=== PATIENT | female | born 1935 | race Two or more races ===

== ENCOUNTER 2018-05-23 11:57 | Inpatient (IN) | payer MEDICARE, MEDICAID ==
[~2018-05-23] VITALS: Ht 152.4 cm; Wt 83.6 kg
[~2018-05-23 11:57] MED LIST: METF500T17 PO; NAPR-856 PO
--- NOTE | 2018-05-23 12:07 | NUR ---
LACHELLE. REPORT RECEIVED FROM EMS. PT C/O SOB WITH NON-PRODUCTIVE COUGH SINCE YESTERDAY MORNING AND GETTING WORSE. LUNG SOUNDS CLEAR. PT DENIES CP. NSR WITHOUT ECTOPY ON NUTRITION SPECIALIST FEATURES REPORTER. ALBUTEROL GIVEN BY EMS FEATURES REPORTER. PT HAS HX OF DM, ASTHMA, HTN. PT DOESN'T WEAR OXYGEN AT HOME. EKG TAKEN AT BEDSIDE BY EDT. XRAY TAKEN AT BEDSIDE WELL. ALL MONITORS IN PLACE. CALL LIGHT WITHIN REACH. PT IS INDONESIAN SPEAKING PRIMARILY, [employer] BUSINESS PLANNING ANALYST [id number] USED FOR PT ASSESSMENT AND EDUCATION.
[2018-05-23] MEDS: PLEASE ENTER HEIGHT AND WEIGHT MC SCH ×2 (12:30→19:24)
[2018-05-23] MEDS ORDERED: ALBUTEROL/IPRATROPIUM 2.5MG/0.5MG, 3 ML NPPB ONE (12:30)
[2018-05-23] MEDS ORDERED: ALBUTEROL SULFATE (12:37)
[2018-05-23 12:41] LABS: BASOPHILS # (AUTO) 0.03 x10^3/uL (0-0.1); BASOPHILS % (AUTO) 1 % (0-1); EOSINOPHILS # (AUTO) 0.22 x10^3/uL (0-0.4); EOSINOPHILS % (AUTO) 3 % (1-7); LYMPHOCYTES # (AUTO) 1.24 x10^3/uL (1-3.4); LYMPHOCYTES % (AUTO) 18 % (22-44); MD NO; MEAN CORPUSCULAR HGB CONC 31.9 g/dL (32.4-35.8); MEAN CORPUSCULAR VOLUME 78.3 fL (80-100); MEAN PLATELET VOLUME 8.6 fL (7.4-10.4); MONOCYTES # (AUTO) 0.34 x10^3/uL (0.2-0.8); MONOCYTES % (AUTO) 5 % (2-9); NEUTROPHILS # (AUTO) 5.05 x10^3/uL (1.8-6.8); NEUTROPHILS % (AUTO) 73 % (42-75); PLATELET COUNT 254 x10^3/uL (130-400); RED BLOOD COUNT 3.68 x10^6/uL (3.82-5.3); RED CELL DISTRIBUTION WIDTH 17.7 % (9.6-15.2)
[2018-05-23] MEDS ORDERED: ALBUTEROL/IPRATROPIUM 2.5MG/0.5MG, 3 ML ONE (12:46)
--- NOTE | 2018-05-23 12:48 | NUR ---
PT MEDICATED PER EMAR. PT TOLERATED WELL. ALL MONITORS IN PLACE. CALL LIGHT WITHIN REACH.
[2018-05-23 12:49] LABS: ALBUMIN 3.2 g/dL (3.4-5.0); ANION GAP 5 mmol/L (5-15); CALCIUM 8.6 mg/dL (8.5-10.1); CHLORIDE 106 mmol/L (98-107); CREATININE 1.12 mg/dL (0.55-1.02)
--- NOTE | 2018-05-23 12:59 | NUR ---
PT AMB TO BR AND BACK TO ROOM WITH STEADY GAIT. RT AT BEDSIDE AND MEDICATED AT THIS TIME.
--- NOTE | 2018-05-23 13:20 | NUR ---
KARTIK ECHEVARRIA AT BEDSIDE FOR REASSESSMENT
--- NOTE | 2018-05-23 13:38 | NUR ---
REPORT TO BREAK RAYMUNDO LEI
--- NOTE | 2018-05-23 14:31 | NUR ---
PT RESTING IN [facility]. ALL MONITORS IN PLACE. CALL LIGHT WITHIN REACH. PT DENIES ANY NEEDS AND CONCERNS AT THIS TIME. AWAITING ADMIT.
[2018-05-23] MEDS ORDERED: SENNA/DOCUSATE TABLET PO PRN (15:30)
[2018-05-23] MEDS ORDERED: ENALAPRILAT 1.25 MG/ML, 2ML IVPush PRN (15:30)
[2018-05-23] MEDS ORDERED: TRAZODONE 50MG TABLET PO PRN (15:30)
[2018-05-23] MEDS ORDERED: ONDANSETRON 2MG/ML, 2ML IVPush PRN (15:30)
[2018-05-23] MEDS ORDERED: ONDANSETRON ODT 4 MG PO PRN (15:30)
[2018-05-23] MEDS ORDERED: HYDROcodone/APAP 5/325 TABLET PO PRN (15:30)
--- NOTE | 2018-05-23 15:46 | NUR ---
PT RESTING ON GURNEY, RESPS EVEN AND UNLABORED. PT DENIES PAIN. NSR ON BOX CHIPPER, NO ECTOPY NOTED. PT HAS NO COMPLAINT AT THIS TIME. AWAITING MED SURG BED ASSIGNMENT AND TRANSPORT AT THIS TIME.
[2018-05-23] MEDS ORDERED: FUROSEMIDE 20 MG/2 ML IV ONE (16:30)
--- NOTE | 2018-05-23 16:57 | NUR ---
PHARMACY PAGED TO VERIFY HOME MEDS
[2018-05-23] MEDS ORDERED: FUROSEMIDE 20 MG/2 ML ONE (17:09)
--- NOTE | 2018-05-23 17:20 | NUR ---
PT MEDICATED PER EMAR. PT TOLERATED WELL. PT AOX4. RESPS EVEN AND UNLABORED. PT'S FAMILY AT BEDSIDE. ALL MONITORS IN PLACE. CALL LIGHT WITHIN REACH.
--- NOTE | 2018-05-23 17:30 | NUR ---
preceptor note: admit RN at bedside
[2018-05-23] MEDS ORDERED: HEPARIN 5,000 UNITS/ML, 1ML ONE (17:37)
--- NOTE | 2018-05-23 17:50 | NUR ---
SBAR REPORT GIVEN TO RAHUL FONSECA. ALL QUESTIONS ANSWERED.
[2018-05-23] MEDS ORDERED: METO100T7 PO (17:52)
[2018-05-23] MEDS ORDERED: ATOR20TA86 PO (17:52)
[2018-05-23] MEDS ORDERED: HYDR1TAB16 PO (17:52)
[2018-05-23] MEDS: HEPARIN 5,000 UNITS/ML, 1ML SQ SCH (18:00)
--- NOTE | 2018-05-23 18:07 | NUR ---
PT MEDICATED PER EMAR BY RAYMUNDO GERARD. PT RESTING ON GURNEY, RESPS EVEN AND UNLABORED. PT DENIES ANY PAIN. VSS, PT IS SINUS TACH RATE 99 WITH NO ECTOPY ON ENGINE ROOM OPERATOR. PT UP TO BATHROOM TO VOID X 4 SINCE LASIX ADMIN, GAIT STEADY. FAMILY AT BEDSIDE. PT AWAITING TRANSPORT TO ROOM 365 AT THIS TIME.
--- NOTE | 2018-05-23 18:15 | NUR ---
receiving RN Quyen called to notify that admit RN obtained additional home meds (from pt and family recollection) and has updated med rec. This has not since been reviewed by pt's MD. pt transported to room 365 accompanied by family without incident. pt a&o, resps even and unlabored, nadn at transport.
[2018-05-23 18:53] VITALS: BP 124/45
[2018-05-23] MEDS ORDERED: GLUCAGON 1 MG IM PRN (19:00)
[2018-05-23] MEDS ORDERED: DEXTROSE 4 GM TAB.CHEW PO PRN (19:00)
[2018-05-23] MEDS ORDERED: DEXTROSE 50%, 50ML SYRINGE IVPush PRN (19:00)
[2018-05-23 19:44] LABS: % IRON SATURATION 7 % (20-55); IRON LEVEL 27 mcg/dL (50-170); TOTAL IRON BINDING CAPACITY 391 mcg/dL (250-450)
[2018-05-23 19:48] LABS: TROPONIN I < 0.015 ng/mL (0.000-0.045)
[2018-05-23] MEDS: metFORMIN 500 MG TABLET PO SCH (20:21)
[2018-05-23] MEDS: ACETAMINOPHEN 325 MG TABLET PO PRN (20:22)
[2018-05-23] MEDS: METOPROLOL TARTRATE 50 MG TABLET PO SCH (20:22)
[2018-05-23] MEDS: ATORVASTATIN 20 MG TABLET PO SCH (20:22)
[2018-05-23] MEDS: SODIUM CHLORIDE FLUSH 10ML SYR IVF SCH (20:23)
[2018-05-23 20:24] LABS: HEMOGLOBIN A1C 5.8 % (4.2-6.3)
[2018-05-23] MEDS: BUDESONIDE 0.5 MG/2 ML INHA INH SCH (21:00)
[2018-05-23 21:30] LABS: RAPID INFLUENZA A Negative (Negative); RAPID INFLUENZA B Negative (Negative)
[2018-05-23] MEDS: ALBUTEROL SULFATE 2.5 MG/3 ML NPPB SCH (21:30)
[2018-05-24] MEDS: INSULIN LISPRO 100 UNITS/ML, PEN SQ-INSULIN SCH ×5 (00:53→21:37)
[2018-05-24 00:55] VITALS: BP 138/78
[2018-05-24 01:07] LABS: TROPONIN I < 0.015 ng/mL (0.000-0.045)
[2018-05-24] MEDS: HEPARIN 5,000 UNITS/ML, 1ML SQ SCH ×3 (03:29→21:38)
[2018-05-24] MEDS: ALBUTEROL SULFATE 2.5 MG/3 ML NPPB SCH ×2 (04:10→06:58)
[2018-05-24 05:33] LABS: ANION GAP 8 mmol/L (5-15); CALCIUM 8.4 mg/dL (8.5-10.1); CHLORIDE 106 mmol/L (98-107)
[2018-05-24 05:34] LABS: CREATININE 1.29 mg/dL (0.55-1.02)
[2018-05-24 06:31] VITALS: BP 132/66
[2018-05-24] MEDS: BUDESONIDE 0.5 MG/2 ML INHA INH SCH ×2 (06:58→19:02)
[2018-05-24] MEDS: metFORMIN 500 MG TABLET PO SCH ×2 (08:54→17:50)
[2018-05-24] MEDS: METOPROLOL TARTRATE 50 MG TABLET PO SCH ×2 (08:54→17:50)
[2018-05-24] MEDS: SODIUM CHLORIDE FLUSH 10ML SYR IVF SCH ×2 (08:54→21:39)
[2018-05-24 12:03] VITALS: BP 129/66
[2018-05-24] MEDS ORDERED: SENNA/DOCUSATE TABLET PO PRN (13:30)
[2018-05-24] MEDS ORDERED: ALBUTEROL SULFATE 2.5 MG/3 ML NPPB PRN (13:30)
[2018-05-24] MEDS: ALBUTEROL/IPRATROPIUM 2.5MG/0.5MG, 3 ML NPPB SCH ×2 (14:51→19:02)
[2018-05-24] MEDS ORDERED: ALBUTEROL/IPRATROPIUM 2.5MG/0.5MG, 3 ML NPPB SCH (15:00)
[2018-05-24] MEDS: FERROUS SULFATE 325 MG TABLET PO SCH ×2 (16:51→16:52)
[2018-05-24] MEDS: ACETAMINOPHEN 325 MG TABLET PO PRN ×2 (16:51→21:38)
[2018-05-24 19:56] VITALS: BP 154/63
[2018-05-24] MEDS: ATORVASTATIN 20 MG TABLET PO SCH (21:38)
[2018-05-25 01:04] VITALS: BP 144/69
[2018-05-25 05:49] LABS: CHLORIDE 107 mmol/L (98-107)
[2018-05-25] MEDS: HEPARIN 5,000 UNITS/ML, 1ML SQ SCH ×3 (05:52→20:40)
[2018-05-25 05:57] LABS: ANION GAP 7 mmol/L (5-15); CALCIUM 8.3 mg/dL (8.5-10.1)
[2018-05-25] MEDS: INSULIN LISPRO 100 UNITS/ML, PEN SQ-INSULIN SCH ×4 (07:06→20:39)
[2018-05-25 07:11] VITALS: BP 144/63
[2018-05-25] MEDS: BUDESONIDE 0.5 MG/2 ML INHA INH SCH ×2 (08:15→18:17)
[2018-05-25] MEDS: ALBUTEROL/IPRATROPIUM 2.5MG/0.5MG, 3 ML NPPB SCH ×4 (08:15→18:17)
[2018-05-25] MEDS: metFORMIN 500 MG TABLET PO SCH ×2 (08:47→16:16)
[2018-05-25] MEDS: FERROUS SULFATE 325 MG TABLET PO SCH ×2 (08:47→16:16)
[2018-05-25] MEDS: METOPROLOL TARTRATE 50 MG TABLET PO SCH ×2 (08:47→16:17)
[2018-05-25] MEDS: SODIUM CHLORIDE FLUSH 10ML SYR IVF SCH ×2 (08:48→20:36)
[2018-05-25 13:40] VITALS: BP 158/71
[2018-05-25] MEDS: ACETAMINOPHEN 325 MG TABLET PO PRN ×2 (16:16→20:35)
[2018-05-25 20:00] VITALS: BP 146/67
[2018-05-25] MEDS: ATORVASTATIN 20 MG TABLET PO SCH (20:35)
[2018-05-26 01:25] VITALS: BP 127/66
[2018-05-26] MEDS: HEPARIN 5,000 UNITS/ML, 1ML SQ SCH ×3 (05:07→21:43)
[2018-05-26 05:15] LABS: ANION GAP 4 mmol/L (5-15); CALCIUM 8.2 mg/dL (8.5-10.1); CHLORIDE 107 mmol/L (98-107); CREATININE 1.39 mg/dL (0.55-1.02)
[2018-05-26] MEDS: BUDESONIDE 0.5 MG/2 ML INHA INH SCH ×2 (06:04→19:20)
[2018-05-26] MEDS: ALBUTEROL/IPRATROPIUM 2.5MG/0.5MG, 3 ML NPPB SCH ×4 (06:04→19:20)
[2018-05-26] MEDS: METOPROLOL TARTRATE 50 MG TABLET PO SCH ×2 (06:16→17:17)
[2018-05-26 06:55] VITALS: BP 121/67
[2018-05-26] MEDS: INSULIN LISPRO 100 UNITS/ML, PEN SQ-INSULIN SCH ×4 (07:00→21:43)
[2018-05-26] MEDS: ACETAMINOPHEN 325 MG TABLET PO PRN ×2 (08:29→21:44)
[2018-05-26] MEDS: metFORMIN 500 MG TABLET PO SCH ×2 (08:29→17:16)
[2018-05-26] MEDS: FERROUS SULFATE 325 MG TABLET PO SCH ×2 (08:29→17:16)
[2018-05-26] MEDS: SODIUM CHLORIDE FLUSH 10ML SYR IVF SCH ×2 (08:31→21:43)
[2018-05-26 12:02] VITALS: BP 117/58
[2018-05-26 17:15] VITALS: BP 132/65
[2018-05-26 20:00] VITALS: BP 146/74
[2018-05-26] MEDS: ATORVASTATIN 20 MG TABLET PO SCH (21:43)
[2018-05-27 01:48] VITALS: BP 122/55
[2018-05-27] MEDS: METOPROLOL TARTRATE 50 MG TABLET PO SCH (05:32)
[2018-05-27] MEDS: HEPARIN 5,000 UNITS/ML, 1ML SQ SCH ×2 (05:32→13:16)
[2018-05-27 06:30] VITALS: BP 147/71
[2018-05-27] MEDS: BUDESONIDE 0.5 MG/2 ML INHA INH SCH (06:55)
[2018-05-27] MEDS: ALBUTEROL/IPRATROPIUM 2.5MG/0.5MG, 3 ML NPPB SCH ×2 (06:55→10:29)
[2018-05-27] MEDS: INSULIN LISPRO 100 UNITS/ML, PEN SQ-INSULIN SCH ×2 (07:00→11:00)
[2018-05-27] MEDS: metFORMIN 500 MG TABLET PO SCH (08:01)
[2018-05-27] MEDS: ACETAMINOPHEN 325 MG TABLET PO PRN (08:01)
[2018-05-27] MEDS: SODIUM CHLORIDE FLUSH 10ML SYR IVF SCH (08:01)
[2018-05-27] MEDS: FERROUS SULFATE 325 MG TABLET PO SCH (08:01)
[2018-05-27] MEDS ORDERED: ALBU8.5H8 PO (12:25)
[2018-05-27] MEDS ORDERED: BUDE180A PO (12:25)
[2018-05-27] MEDS ORDERED: FERR-51 PO (12:25)
[2018-05-27] MEDS ORDERED: PRED10TA PO (12:29)
[2018-05-27 12:42] VITALS: BP 148/76
== END 2018-05-27 16:53 | disposition home or self-care (01) | DRG 189 ==
LOC: ED 13:48 → EDIP 15:21 → 3NE 18:17
PROVIDERS: ADMIT Family Medicine; ATTEND Family Medicine
DX: J96.01 Acute respiratory failure with hypoxia (principal); J45.41 Moderate persistent asthma with (acute) exacerbation; I13.0 Hypertensive heart and chronic kidney disease with heart failure and stage 1 through stage 4 chronic kidney disease, or unspecified chronic kidney disease; N18.3 Chronic kidney disease, stage 3 (moderate); D50.9 Iron deficiency anemia, unspecified; E11.22 Type 2 diabetes mellitus with diabetic chronic kidney disease; E78.5 Hyperlipidemia, unspecified; I35.0 Nonrheumatic aortic (valve) stenosis; N18.9 Chronic kidney disease, unspecified; Z79.84 Long term (current) use of oral hypoglycemic drugs; Z79.899 Other long term (current) drug therapy; Z86.73 Personal history of transient ischemic attack (TIA), and cerebral infarction without residual deficits; Z88.0 Allergy status to penicillin; Z88.8 Allergy status to other drugs, medicaments and biological substances; D63.1 Anemia in chronic kidney disease; I50.9 Heart failure, unspecified
CPT/HCPCS: 36415; 71045; 80048; 82040; 82962; 83036; 83540; 83550; 83880; 84484; 85025; 87400; 93005; 93306; 94640; 96374; G0378; J1644; J7613; J7620; J7626; J1815; J1940; J7512

== ENCOUNTER 2018-06-19 10:02 | Emergency (ER) | payer MEDICARE, MEDICAID ==
[~2018-06-19] VITALS: Ht 134.6 cm; Wt 78.5 kg
[~2018-06-19 10:02] MED LIST changes: +ALBU8.5H8 PO; +ALBUTEROL SULFATE; +ATOR20TA86 PO; +BUDE180A PO; +FERR-51 PO; +HYDR1TAB16 PO; +METO100T7 PO; +PRED10TA PO
[2018-06-19] MEDS ORDERED: DIPH,PERTUSS(ACELL),TET VAC/PF 0.5 ML IM-VACC ONE ×2 (11:00→12:27)
--- NOTE | 2018-06-19 12:19 | NUR ---
PT WC'D TO ROOM 25 W/ C/O R ELBOW REDNESS, PAIN, AND PUS DRAINAGE. PT FELL 3 DAYS AGO AFTER HER PANT LEG GOT CAUGHT ON HER WC. PT DENIES LOC/HEAD INJURY. PT STATES SHE HAS DM 2 AND WAS CONCERNED ABOUT THE DRAINAGE. PT RESTING ON [facility]. CLEMENCIA. FAMILY AT BEDSIDE.
--- NOTE | 2018-06-19 12:22 | NUR ---
REPORT GIVEN TO RAYMUNDO WETZEL.
[2018-06-19] MEDS ORDERED: BACITRACIN ZINC OINT 500U/GM, 0.9 GM ONE (12:27)
[2018-06-19 13:04] VITALS: BP 139/80
== END 2018-06-19 13:07 | disposition home or self-care (01) ==
LOC: ED 13:02 → EDBD 13:02 → ED 13:07
DX: L03.113 Cellulitis of right upper limb (principal); S59.901A Unspecified injury of right elbow, initial encounter; E11.9 Type 2 diabetes mellitus without complications; E78.5 Hyperlipidemia, unspecified; I10 Essential (primary) hypertension; Z87.891 Personal history of nicotine dependence; W19.XXXA Unspecified fall, initial encounter; Y93.89 Activity, other specified; Y99.8 Other external cause status; Y92.009 Unspecified place in unspecified non-institutional (private) residence as the place of occurrence of the external cause
CPT/HCPCS: 82962; 90471; 90715

== ENCOUNTER 2018-06-25 11:02 | Inpatient (IN) | payer MEDICARE, MEDICAID ==
[2018-06-24 15:24] VITALS: BP 141/68
[~2018-06-25] VITALS: Ht 154.9 cm; Wt 71.8 kg
--- NOTE | 2018-06-25 11:28 | NUR ---
BIB [facility] FOR RESP DISTRESS/SOB. HX OF COPD/ASTHMA. NEBULIZER TX GIVEN WITH SOME IMPROVEMENT PER [facility]. PT PRESENTS WITH LABORED BREATHING, ON 1L NC, AUDITORY WHEEZING AND CONGESTED NON-PRODUCTIVE COUGH. PT PLACED ON MONTIOR. MD AT BEDSIDE.
[2018-06-25] MEDS ORDERED: SODIUM CHLORIDE FLUSH 10ML SYR IVF ONE (11:30)
[2018-06-25 11:39] LABS: BASOPHILS # (AUTO) 0.02 x10^3/uL (0-0.1); BASOPHILS % (AUTO) 0 % (0-1); EOSINOPHILS # (AUTO) 0.17 x10^3/uL (0-0.4); EOSINOPHILS % (AUTO) 3 % (1-7); LYMPHOCYTES # (AUTO) 0.94 x10^3/uL (1-3.4); LYMPHOCYTES % (AUTO) 16 % (22-44); MD NO; MEAN CORPUSCULAR HEMOGLOBIN 25.1 pg (27.0-34.8); MEAN CORPUSCULAR HGB CONC 31.9 g/dL (32.4-35.8); MEAN CORPUSCULAR VOLUME 78.6 fL (80-100); MEAN PLATELET VOLUME 8.1 fL (7.4-10.4); MONOCYTES # (AUTO) 0.32 x10^3/uL (0.2-0.8); MONOCYTES % (AUTO) 5 % (2-9); NEUTROPHILS # (AUTO) 4.59 x10^3/uL (1.8-6.8); NEUTROPHILS % (AUTO) 76 % (42-75); PLATELET COUNT 301 x10^3/uL (130-400); RED BLOOD COUNT 4.13 x10^6/uL (3.82-5.3); RED CELL DISTRIBUTION WIDTH 20.3 % (9.6-15.2)
[2018-06-25 11:52] LABS: ALANINE AMINOTRANSFERASE 6 U/L (12-78); ALBUMIN 3.2 g/dL (3.4-5.0); ANION GAP 6 mmol/L (5-15); CALCIUM 8.7 mg/dL (8.5-10.1); CHLORIDE 109 mmol/L (98-107)
[2018-06-25 11:56] LABS: ALKALINE PHOSPHATASE 95 U/L (45-117); BILIRUBIN,TOTAL 0.6 mg/dL (0.2-1.0); TOTAL PROTEIN 6.9 g/dL (6.4-8.2)
[2018-06-25] MEDS ORDERED: SODIUM CHLORIDE FLUSH 10ML SYR IVF PRN (12:30)
[2018-06-25] MEDS ORDERED: LABETALOL 5MG/ML, 20ML IVPush PRN (13:00)
[2018-06-25] MEDS ORDERED: ENALAPRILAT 1.25 MG/ML, 2ML IVPush PRN (13:00)
[2018-06-25] MEDS ORDERED: DOCUSATE 100 MG CAPSULE PO PRN (13:00)
[2018-06-25] MEDS: HEPARIN 5,000 UNITS/ML, 1ML SQ SCH ×2 (13:00→21:24)
[2018-06-25] MEDS ORDERED: GLUCAGON 1 MG IM PRN (13:00)
[2018-06-25] MEDS: BUDESONIDE 0.5 MG/2 ML INHA INH SCH ×2 (13:00→19:10)
[2018-06-25] MEDS ORDERED: ONDANSETRON 2MG/ML, 2ML IVPush PRN (13:00)
[2018-06-25] MEDS: FUROSEMIDE 40 MG/4 ML IV SCH ×2 (13:00→19:36)
[2018-06-25] MEDS ORDERED: DEXTROSE 50%, 50ML SYRINGE IVPush PRN (13:00)
[2018-06-25] MEDS ORDERED: DEXTROSE 4 GM TAB.CHEW PO PRN (13:00)
[2018-06-25] MEDS ORDERED: ONDANSETRON ODT 4 MG PO PRN (13:00)
[2018-06-25] MEDS ORDERED: ALBUTEROL SULFATE 2.5MG/0.5ML ONE (13:25)
[2018-06-25] MEDS ORDERED: ALBUTEROL SULFATE 2.5 MG/3 ML ONE (13:25)
[2018-06-25] MEDS ORDERED: ALBUTEROL SULFATE 2.5MG/0.5ML NPPB PRN (13:30)
[2018-06-25] MEDS ORDERED: IPRATROPIUM 0.5 MG/2.5 ML INHA HHN SCH (13:30)
[2018-06-25] MEDS ORDERED: FUROSEMIDE 20 MG/2 ML ONE (13:31)
[2018-06-25] MEDS ORDERED: HEPARIN 5,000 UNITS/ML, 1ML ONE (13:31)
[2018-06-25] MEDS ORDERED: methylPREDNISolone SOD SUCC 125 MG/2 ML ONE (13:31)
[2018-06-25] MEDS: ALBUTEROL SULFATE 2.5 MG/3 ML NPPB SCH ×3 (13:32→23:00)
--- NOTE | 2018-06-25 13:51 | NUR ---
PT RESTING IN BED, ON 2LNC, NAD, AWAITING MED/TELE BED. ADMITTING MD AT BEDSIDE.
[2018-06-25] MEDS: LABETALOL MC SCH (14:00)
[2018-06-25] MEDS: ENALAPRIL MC SCH (14:00)
--- NOTE | 2018-06-25 14:38 | NUR ---
REPORT WAS GIVEN TO LEONIE FONSECA. PT. IS READY FOR TRANSPORT TO THE FLOOR.
[2018-06-25] MEDS ORDERED: HYDROcodone/APAP 10/325 MG TABLET PO PRN (15:30)
[2018-06-25 15:50] LABS: TROPONIN I 0.023 ng/mL (0.000-0.045)
[2018-06-25] MEDS: INSULIN LISPRO 100 UNITS/ML, PEN SQ-INSULIN SCH ×2 (16:00→21:35)
[2018-06-25 19:05] VITALS: BP 141/75
[2018-06-25] MEDS: methylPREDNISolone SOD SUCC 125 MG/2 ML IVPush SCH (19:36)
[2018-06-25] MEDS: SODIUM CHLORIDE FLUSH 10ML SYR IVF SCH (21:24)
[2018-06-25] MEDS: ACETAMINOPHEN 325 MG TABLET PO PRN (21:35)
[2018-06-25 21:38] LABS: TROPONIN I 0.016 ng/mL (0.000-0.045)
[2018-06-26 01:43] VITALS: BP 129/73
[2018-06-26] MEDS: methylPREDNISolone SOD SUCC 125 MG/2 ML IVPush SCH ×4 (02:11→21:02)
[2018-06-26] MEDS: ENALAPRIL MC SCH ×3 (02:12→16:25)
[2018-06-26] MEDS: LABETALOL MC SCH ×3 (02:12→16:25)
[2018-06-26] MEDS: ALBUTEROL SULFATE 2.5 MG/3 ML NPPB SCH ×6 (03:00→23:00)
[2018-06-26] MEDS: ASPIRIN 325 MG TABLET EC PO SCH (04:55)
[2018-06-26] MEDS: HEPARIN 5,000 UNITS/ML, 1ML SQ SCH ×3 (04:55→21:02)
[2018-06-26 06:56] LABS: MEAN CORPUSCULAR HGB CONC 32.6 g/dL (32.4-35.8); MEAN CORPUSCULAR VOLUME 79.7 fL (80-100); MEAN PLATELET VOLUME 8.3 fL (7.4-10.4); PLATELET COUNT 314 x10^3/uL (130-400); RED BLOOD COUNT 4.42 x10^6/uL (3.82-5.3); RED CELL DISTRIBUTION WIDTH 20.3 % (9.6-15.2)
[2018-06-26 07:00] LABS: ANION GAP 9 mmol/L (5-15); CALCIUM 9.1 mg/dL (8.5-10.1); CHLORIDE 105 mmol/L (98-107); CREATININE 1.43 mg/dL (0.55-1.02)
[2018-06-26 07:39] LABS: MD YES
[2018-06-26] MEDS: BUDESONIDE 0.5 MG/2 ML INHA INH SCH ×2 (07:40→19:46)
[2018-06-26 07:43] LABS: BAND#(MANUAL) 0.27 x10^3/uL; BANDS%(MANUAL) 6 % (0-7); LYMPH#(MANUAL) 0.54 x10^3/uL (1-3.4); LYMPHS% (MANUAL) 12 % (22-44); METAMYELOCYTES# (MANUAL) 0.14 x10^3/uL (0-0); METAMYELOCYTES% (MANUAL) 3 % (0-1); MYELOCYTES# (MANUAL) 0.05 x10^3/uL (0-0); MYELOCYTES% (MANUAL) 1 % (0-0); SEG#(MANUAL) 3.51 x10^3/uL (1.8-6.8); SEGS% (MANUAL) 78 % (42-75)
[2018-06-26 07:44] LABS: NRBC % (MANUAL) 1 % (0-1)
[2018-06-26 07:45] LABS: <PLATELET ESTIMATE> ADEQUATE; <PLT MORPHOLOGY> NORMAL PLT MORPH; ANISOCYTOSIS 1+
[2018-06-26 07:46] LABS: POLYCHROMASIA 1+
[2018-06-26 07:50] VITALS: BP 147/75
[2018-06-26] MEDS: INSULIN LISPRO 100 UNITS/ML, PEN SQ-INSULIN SCH ×4 (08:46→22:40)
[2018-06-26] MEDS: FUROSEMIDE 40 MG/4 ML IV SCH ×2 (08:46→16:54)
[2018-06-26] MEDS: ACETAMINOPHEN 325 MG TABLET PO PRN ×2 (08:46→21:01)
[2018-06-26] MEDS: METOPROLOL SUCCINATE 100 MG TAB.ER.24H PO SCH (08:47)
[2018-06-26] MEDS: FERROUS SULFATE 325 MG TABLET PO SCH (08:47)
[2018-06-26] MEDS: SODIUM CHLORIDE FLUSH 10ML SYR IVF SCH ×2 (08:47→21:02)
[2018-06-26 11:38] LABS: RAPID INFLUENZA A Negative (Negative); RAPID INFLUENZA B Negative (Negative)
[2018-06-26 12:33] VITALS: BP 125/85
[2018-06-26 20:50] VITALS: BP 152/67
[2018-06-26] MEDS: ATORVASTATIN 20 MG TABLET PO SCH (21:01)
[2018-06-27 00:59] VITALS: BP 159/69
[2018-06-27] MEDS: methylPREDNISolone SOD SUCC 125 MG/2 ML IVPush SCH ×4 (01:05→23:46)
[2018-06-27] MEDS: LABETALOL MC SCH ×3 (01:09→17:30)
[2018-06-27] MEDS: ENALAPRIL MC SCH ×3 (01:09→17:30)
[2018-06-27] MEDS: ALBUTEROL SULFATE 2.5 MG/3 ML NPPB SCH (01:15)
[2018-06-27] MEDS: HEPARIN 5,000 UNITS/ML, 1ML SQ SCH ×3 (06:01→22:20)
[2018-06-27] MEDS: ASPIRIN 325 MG TABLET EC PO SCH (06:02)
[2018-06-27] MEDS ORDERED: PNEUMOCOCCAL 23 VACCINE IM-VACC ONE (07:00)
[2018-06-27 07:02] VITALS: BP 112/72
[2018-06-27] MEDS ORDERED: ALBUTEROL SULFATE 2.5 MG/3 ML ONE (07:40)
[2018-06-27] MEDS: ACETAMINOPHEN 325 MG TABLET PO PRN ×3 (08:05→22:19)
[2018-06-27] MEDS: INSULIN LISPRO 100 UNITS/ML, PEN SQ-INSULIN SCH ×4 (08:05→22:20)
[2018-06-27] MEDS: FERROUS SULFATE 325 MG TABLET PO SCH (08:06)
[2018-06-27] MEDS: METOPROLOL SUCCINATE 100 MG TAB.ER.24H PO SCH (08:06)
[2018-06-27] MEDS: SODIUM CHLORIDE FLUSH 10ML SYR IVF SCH ×2 (08:06→22:21)
[2018-06-27] MEDS: FUROSEMIDE 40 MG/4 ML IV SCH (08:07)
[2018-06-27 08:38] LABS: BASOPHILS # (AUTO) 0.01 x10^3/uL (0-0.1); BASOPHILS % (AUTO) 0 % (0-1); EOSINOPHILS % (AUTO) 0 % (1-7); LYMPHOCYTES # (AUTO) 1.41 x10^3/uL (1-3.4); LYMPHOCYTES % (AUTO) 25 % (22-44); MD NO; MEAN CORPUSCULAR HEMOGLOBIN 25.5 pg (27.0-34.8); MEAN CORPUSCULAR HGB CONC 32.1 g/dL (32.4-35.8); MEAN CORPUSCULAR VOLUME 79.4 fL (80-100); MEAN PLATELET VOLUME 8.6 fL (7.4-10.4); MONOCYTES # (AUTO) 0.24 x10^3/uL (0.2-0.8); MONOCYTES % (AUTO) 4 % (2-9); NEUTROPHILS # (AUTO) 4.06 x10^3/uL (1.8-6.8); NEUTROPHILS % (AUTO) 71 % (42-75); PLATELET COUNT 354 x10^3/uL (130-400); RED BLOOD COUNT 4.62 x10^6/uL (3.82-5.3); RED CELL DISTRIBUTION WIDTH 20.3 % (9.6-15.2)
[2018-06-27 08:42] LABS: ANION GAP 8 mmol/L (5-15); CALCIUM 8.8 mg/dL (8.5-10.1); CHLORIDE 105 mmol/L (98-107); CREATININE 1.52 mg/dL (0.55-1.02)
[2018-06-27] MEDS: ALBUTEROL/IPRATROPIUM 2.5MG/0.5MG, 3 ML NPPB SCH ×4 (11:00→22:00)
[2018-06-27 12:37] VITALS: BP 147/72
[2018-06-27] MEDS ORDERED: LABETALOL 5 MG/ML SYRINGE IVPush PRN (16:30)
[2018-06-27] MEDS: BUDESONIDE 0.5 MG/2 ML INHA INH SCH ×2 (16:37→19:40)
[2018-06-27] MEDS ORDERED: ENALAPRILAT 1.25 MG/ML, 2ML IVPush PRN (19:30)
[2018-06-27 19:35] VITALS: BP 151/75
[2018-06-27] MEDS: ATORVASTATIN 20 MG TABLET PO SCH (22:18)
[2018-06-28 01:30] VITALS: BP 130/72
[2018-06-28] MEDS: ENALAPRIL MC SCH ×3 (02:09→17:30)
[2018-06-28] MEDS: LABETALOL MC SCH ×3 (02:09→17:30)
[2018-06-28] MEDS: HEPARIN 5,000 UNITS/ML, 1ML SQ SCH ×3 (04:44→20:19)
[2018-06-28] MEDS: ASPIRIN 325 MG TABLET EC PO SCH (05:49)
[2018-06-28] MEDS: ALBUTEROL/IPRATROPIUM 2.5MG/0.5MG, 3 ML NPPB SCH ×5 (06:00→20:00)
[2018-06-28 06:36] LABS: ANION GAP 6 mmol/L (5-15); CHLORIDE 106 mmol/L (98-107); CREATININE 1.73 mg/dL (0.55-1.02)
[2018-06-28] MEDS: BUDESONIDE 0.5 MG/2 ML INHA INH SCH ×2 (06:37→20:00)
[2018-06-28 08:03] VITALS: BP 133/76
[2018-06-28] MEDS: INSULIN LISPRO 100 UNITS/ML, PEN SQ-INSULIN SCH ×4 (09:31→20:15)
[2018-06-28] MEDS: FUROSEMIDE 40 MG/4 ML IV SCH (09:31)
[2018-06-28] MEDS: ACETAMINOPHEN 325 MG TABLET PO PRN ×2 (09:31→20:14)
[2018-06-28] MEDS: FERROUS SULFATE 325 MG TABLET PO SCH (09:31)
[2018-06-28] MEDS: METOPROLOL SUCCINATE 100 MG TAB.ER.24H PO SCH (09:32)
[2018-06-28] MEDS: SODIUM CHLORIDE FLUSH 10ML SYR IVF SCH ×2 (09:32→20:18)
[2018-06-28] MEDS: methylPREDNISolone SOD SUCC 125 MG/2 ML IVPush SCH ×2 (12:11→23:42)
[2018-06-28] MEDS: maalox/diphenh/lido/sucralfate 5 ML PO PRN (12:11)
[2018-06-28 13:08] VITALS: BP 129/74
[2018-06-28 19:12] VITALS: BP 128/69
[2018-06-28] MEDS: ATORVASTATIN 20 MG TABLET PO SCH (20:14)
[2018-06-29 01:25] VITALS: BP 144/77
[2018-06-29] MEDS: HEPARIN 5,000 UNITS/ML, 1ML SQ SCH ×3 (04:03→20:28)
[2018-06-29] MEDS: ASPIRIN 325 MG TABLET EC PO SCH (05:23)
[2018-06-29 06:17] LABS: ANION GAP 4 mmol/L (5-15); CALCIUM 8.5 mg/dL (8.5-10.1); CHLORIDE 106 mmol/L (98-107)
[2018-06-29 06:18] LABS: CREATININE 1.56 mg/dL (0.55-1.02)
[2018-06-29] MEDS: ALBUTEROL/IPRATROPIUM 2.5MG/0.5MG, 3 ML NPPB SCH ×5 (06:32→23:00)
[2018-06-29] MEDS: BUDESONIDE 0.5 MG/2 ML INHA INH SCH ×2 (06:32→19:20)
[2018-06-29 06:54] VITALS: BP 139/76
[2018-06-29 08:18] VITALS: BP 140/67
[2018-06-29] MEDS: FERROUS SULFATE 325 MG TABLET PO SCH (08:59)
[2018-06-29] MEDS: ACETAMINOPHEN 325 MG TABLET PO PRN ×2 (08:59→17:40)
[2018-06-29] MEDS: METOPROLOL SUCCINATE 100 MG TAB.ER.24H PO SCH (08:59)
[2018-06-29] MEDS: FUROSEMIDE 40 MG TABLET PO SCH (08:59)
[2018-06-29] MEDS: SODIUM CHLORIDE FLUSH 10ML SYR IVF SCH ×2 (09:00→20:29)
[2018-06-29] MEDS: INSULIN LISPRO 100 UNITS/ML, PEN SQ-INSULIN SCH ×4 (09:03→20:26)
[2018-06-29] MEDS: methylPREDNISolone SOD SUCC 125 MG/2 ML IVPush SCH ×2 (12:37→23:41)
[2018-06-29] MEDS: maalox/diphenh/lido/sucralfate 5 ML PO PRN (12:38)
[2018-06-29 13:18] VITALS: BP 138/72
[2018-06-29] MEDS: NYSTATIN 500,000 UNITS/5 ML UDC PO SCH ×2 (17:40→20:27)
[2018-06-29 19:22] VITALS: BP 122/65
[2018-06-29] MEDS: ATORVASTATIN 20 MG TABLET PO SCH (20:27)
[2018-06-30 01:45] VITALS: BP 125/69
[2018-06-30] MEDS: ALBUTEROL/IPRATROPIUM 2.5MG/0.5MG, 3 ML NPPB SCH ×6 (03:00→21:59)
[2018-06-30 03:16] VITALS: BP 142/68
[2018-06-30] MEDS: NYSTATIN 500,000 UNITS/5 ML UDC PO SCH ×4 (05:30→20:50)
[2018-06-30] MEDS: ASPIRIN 325 MG TABLET EC PO SCH (05:30)
[2018-06-30] MEDS: HEPARIN 5,000 UNITS/ML, 1ML SQ SCH ×3 (05:31→20:50)
[2018-06-30] MEDS: BUDESONIDE 0.5 MG/2 ML INHA INH SCH ×2 (07:45→18:56)
[2018-06-30] MEDS: ACETAMINOPHEN 325 MG TABLET PO PRN ×3 (08:18→20:49)
[2018-06-30] MEDS: SODIUM CHLORIDE FLUSH 10ML SYR IVF SCH ×2 (09:00→20:50)
[2018-06-30] MEDS: METOPROLOL SUCCINATE 100 MG TAB.ER.24H PO SCH (09:18)
[2018-06-30] MEDS: FUROSEMIDE 40 MG TABLET PO SCH (09:18)
[2018-06-30] MEDS: INSULIN LISPRO 100 UNITS/ML, PEN SQ-INSULIN SCH ×4 (09:18→20:50)
[2018-06-30] MEDS: FERROUS SULFATE 325 MG TABLET PO SCH (09:19)
[2018-06-30] MEDS: methylPREDNISolone SOD SUCC 125 MG/2 ML IVPush SCH (12:01)
[2018-06-30 14:37] VITALS: BP 127/66
[2018-06-30 19:45] VITALS: BP 145/68
[2018-06-30] MEDS: ATORVASTATIN 20 MG TABLET PO SCH (20:49)
[2018-07-01 01:20] VITALS: BP 109/61
[2018-07-01] MEDS: ALBUTEROL/IPRATROPIUM 2.5MG/0.5MG, 3 ML NPPB SCH ×6 (02:40→22:45)
[2018-07-01] MEDS: ACETAMINOPHEN 325 MG TABLET PO PRN ×2 (03:25→16:36)
[2018-07-01] MEDS: NYSTATIN 500,000 UNITS/5 ML UDC PO SCH ×4 (05:01→21:04)
[2018-07-01] MEDS: HEPARIN 5,000 UNITS/ML, 1ML SQ SCH ×3 (05:01→21:03)
[2018-07-01] MEDS: ASPIRIN 325 MG TABLET EC PO SCH (05:01)
[2018-07-01] MEDS: BUDESONIDE 0.5 MG/2 ML INHA INH SCH ×2 (07:18→19:10)
[2018-07-01 07:57] VITALS: BP 120/65
[2018-07-01] MEDS: FERROUS SULFATE 325 MG TABLET PO SCH (08:06)
[2018-07-01] MEDS: FUROSEMIDE 40 MG TABLET PO SCH (08:06)
[2018-07-01] MEDS: INSULIN LISPRO 100 UNITS/ML, PEN SQ-INSULIN SCH ×4 (08:06→21:04)
[2018-07-01] MEDS: SODIUM CHLORIDE FLUSH 10ML SYR IVF SCH ×2 (08:06→21:05)
[2018-07-01] MEDS: METOPROLOL SUCCINATE 100 MG TAB.ER.24H PO SCH (08:06)
[2018-07-01 12:18] VITALS: BP 158/78
[2018-07-01 19:06] VITALS: BP 152/77
[2018-07-01] MEDS ORDERED: INSULIN GLARGINE 100 UNITS/ML, PEN SQ-INSULIN SCH (21:00)
[2018-07-01] MEDS: ATORVASTATIN 20 MG TABLET PO SCH (21:04)
[2018-07-02 00:52] VITALS: BP 149/72
[2018-07-02] MEDS: ALBUTEROL/IPRATROPIUM 2.5MG/0.5MG, 3 ML NPPB SCH ×5 (02:59→19:21)
[2018-07-02] MEDS: ASPIRIN 325 MG TABLET EC PO SCH (05:15)
[2018-07-02] MEDS: HEPARIN 5,000 UNITS/ML, 1ML SQ SCH ×3 (05:15→21:21)
[2018-07-02] MEDS: NYSTATIN 500,000 UNITS/5 ML UDC PO SCH ×4 (05:15→21:21)
[2018-07-02] MEDS: ACETAMINOPHEN 325 MG TABLET PO PRN ×2 (05:20→21:21)
[2018-07-02 06:11] LABS: ANION GAP 3 mmol/L (5-15); CHLORIDE 108 mmol/L (98-107); CREATININE 1.09 mg/dL (0.55-1.02)
[2018-07-02 06:58] LABS: HEMOGLOBIN A1C 6.1 % (4.2-6.3)
[2018-07-02 07:00] VITALS: BP 114/67
[2018-07-02] MEDS: BUDESONIDE 0.5 MG/2 ML INHA INH SCH ×2 (07:00→19:21)
[2018-07-02] MEDS: INSULIN LISPRO 100 UNITS/ML, PEN SQ-INSULIN SCH ×4 (08:41→21:32)
[2018-07-02] MEDS: METOPROLOL SUCCINATE 100 MG TAB.ER.24H PO SCH (08:42)
[2018-07-02] MEDS: FERROUS SULFATE 325 MG TABLET PO SCH (08:42)
[2018-07-02] MEDS: FUROSEMIDE 40 MG TABLET PO SCH (08:42)
[2018-07-02] MEDS: SODIUM CHLORIDE FLUSH 10ML SYR IVF SCH ×2 (08:43→21:00)
[2018-07-02 12:07] VITALS: BP 148/65
[2018-07-02 19:08] VITALS: BP 131/61
[2018-07-02] MEDS ORDERED: INSULIN GLARGINE 100 UNITS/ML, PEN SQ-INSULIN SCH (21:00)
[2018-07-02] MEDS: ATORVASTATIN 20 MG TABLET PO SCH (21:21)
[2018-07-02] MEDS: methylPREDNISolone SOD SUCC 125 MG/2 ML IVPush SCH (21:39)
[2018-07-03 01:06] VITALS: BP 149/73
[2018-07-03] MEDS: methylPREDNISolone SOD SUCC 125 MG/2 ML IVPush SCH ×4 (04:51→22:05)
[2018-07-03] MEDS: NYSTATIN 500,000 UNITS/5 ML UDC PO SCH ×4 (04:51→22:03)
[2018-07-03] MEDS: HEPARIN 5,000 UNITS/ML, 1ML SQ SCH ×3 (04:52→22:03)
[2018-07-03] MEDS: ASPIRIN 325 MG TABLET EC PO SCH (04:52)
[2018-07-03 06:38] LABS: MEAN CORPUSCULAR HEMOGLOBIN 25.3 pg (27.0-34.8); MEAN CORPUSCULAR HGB CONC 32.1 g/dL (32.4-35.8); MEAN CORPUSCULAR VOLUME 78.9 fL (80-100); MEAN PLATELET VOLUME 9.2 fL (7.4-10.4); PLATELET COUNT 242 x10^3/uL (130-400); RED BLOOD COUNT 4.34 x10^6/uL (3.82-5.3); RED CELL DISTRIBUTION WIDTH 19.6 % (9.6-15.2)
[2018-07-03 06:45] LABS: ANION GAP 6 mmol/L (5-15); CALCIUM 7.9 mg/dL (8.5-10.1); CHLORIDE 105 mmol/L (98-107)
[2018-07-03 06:47] LABS: CREATININE 1.15 mg/dL (0.55-1.02)
[2018-07-03 06:55] LABS: BASOPHILS % (AUTO) 0 % (0-1); EOSINOPHILS % (AUTO) 0 % (1-7); LYMPHOCYTES # (AUTO) 0.82 x10^3/uL (1-3.4); LYMPHOCYTES % (AUTO) 7 % (22-44); MD SCAN; MONOCYTES # (AUTO) 0.18 x10^3/uL (0.2-0.8); MONOCYTES % (AUTO) 2 % (2-9); NEUTROPHILS # (AUTO) 10.85 x10^3/uL (1.8-6.8); NEUTROPHILS % (AUTO) 92 % (42-75)
[2018-07-03 07:03] VITALS: BP 152/76
[2018-07-03] MEDS: BUDESONIDE 0.5 MG/2 ML INHA INH SCH ×2 (07:15→21:10)
[2018-07-03] MEDS: ALBUTEROL/IPRATROPIUM 2.5MG/0.5MG, 3 ML NPPB SCH ×4 (07:15→21:10)
[2018-07-03] MEDS: INSULIN LISPRO 100 UNITS/ML, PEN SQ-INSULIN SCH ×4 (09:28→22:06)
[2018-07-03] MEDS: OMEPRAZOLE 20 MG CAPSULE.DR PO SCH ×2 (09:31→22:03)
[2018-07-03] MEDS: FERROUS SULFATE 325 MG TABLET PO SCH (09:31)
[2018-07-03] MEDS: METOPROLOL SUCCINATE 100 MG TAB.ER.24H PO SCH (09:31)
[2018-07-03] MEDS: FUROSEMIDE 40 MG TABLET PO SCH (09:31)
[2018-07-03] MEDS: SODIUM CHLORIDE FLUSH 10ML SYR IVF SCH ×2 (09:31→22:04)
[2018-07-03 13:52] VITALS: BP 149/76
[2018-07-03 19:44] VITALS: BP 137/65
[2018-07-03] MEDS: ACETAMINOPHEN 325 MG TABLET PO PRN (19:57)
[2018-07-03] MEDS ORDERED: INSULIN GLARGINE 100 UNITS/ML, PEN SQ-INSULIN SCH (21:00)
[2018-07-03] MEDS: ATORVASTATIN 20 MG TABLET PO SCH (22:02)
[2018-07-04 01:35] VITALS: BP 116/57
[2018-07-04] MEDS: HEPARIN 5,000 UNITS/ML, 1ML SQ SCH ×3 (05:08→20:20)
[2018-07-04] MEDS: methylPREDNISolone SOD SUCC 125 MG/2 ML IVPush SCH ×4 (05:10→22:24)
[2018-07-04] MEDS: ASPIRIN 325 MG TABLET EC PO SCH (05:10)
[2018-07-04] MEDS: OMEPRAZOLE 20 MG CAPSULE.DR PO SCH ×2 (05:10→20:19)
[2018-07-04] MEDS: NYSTATIN 500,000 UNITS/5 ML UDC PO SCH ×4 (05:10→20:19)
[2018-07-04] MEDS: ACETAMINOPHEN 325 MG TABLET PO PRN ×4 (05:21→20:36)
[2018-07-04 06:05] LABS: ANION GAP 6 mmol/L (5-15); CALCIUM 8.2 mg/dL (8.5-10.1); CHLORIDE 106 mmol/L (98-107)
[2018-07-04] MEDS: ALBUTEROL/IPRATROPIUM 2.5MG/0.5MG, 3 ML NPPB SCH ×4 (06:13→20:00)
[2018-07-04 07:21] VITALS: BP 120/64
[2018-07-04] MEDS: BUDESONIDE 0.5 MG/2 ML INHA INH SCH ×2 (09:00→20:10)
[2018-07-04] MEDS: FERROUS SULFATE 325 MG TABLET PO SCH (09:14)
[2018-07-04] MEDS: METOPROLOL SUCCINATE 100 MG TAB.ER.24H PO SCH (09:14)
[2018-07-04] MEDS: FUROSEMIDE 40 MG TABLET PO SCH (09:14)
[2018-07-04] MEDS: SODIUM CHLORIDE FLUSH 10ML SYR IVF SCH ×2 (09:15→20:19)
[2018-07-04] MEDS: INSULIN LISPRO 100 UNITS/ML, PEN SQ-INSULIN SCH ×4 (09:17→20:21)
[2018-07-04 13:54] VITALS: BP 126/68
[2018-07-04 18:51] VITALS: BP 128/86
[2018-07-04] MEDS: ATORVASTATIN 20 MG TABLET PO SCH (20:19)
[2018-07-04] MEDS: INSULIN GLARGINE 100 UNITS/ML, PEN SQ-INSULIN SCH (20:21)
[2018-07-05 01:21] VITALS: BP 158/88
[2018-07-05] MEDS: ACETAMINOPHEN 325 MG TABLET PO PRN ×3 (04:30→20:08)
[2018-07-05] MEDS: ASPIRIN 325 MG TABLET EC PO SCH (05:11)
[2018-07-05] MEDS: HEPARIN 5,000 UNITS/ML, 1ML SQ SCH ×3 (05:11→20:08)
[2018-07-05] MEDS: NYSTATIN 500,000 UNITS/5 ML UDC PO SCH ×4 (05:12→20:07)
[2018-07-05] MEDS: OMEPRAZOLE 20 MG CAPSULE.DR PO SCH ×2 (05:12→20:08)
[2018-07-05] MEDS: methylPREDNISolone SOD SUCC 125 MG/2 ML IVPush SCH ×4 (05:15→22:24)
[2018-07-05 06:20] LABS: ANION GAP 8 mmol/L (5-15); CALCIUM 7.7 mg/dL (8.5-10.1); CHLORIDE 104 mmol/L (98-107)
[2018-07-05 06:22] LABS: CREATININE 1.33 mg/dL (0.55-1.02)
[2018-07-05] MEDS: BUDESONIDE 0.5 MG/2 ML INHA INH SCH ×2 (07:53→18:50)
[2018-07-05] MEDS: ALBUTEROL/IPRATROPIUM 2.5MG/0.5MG, 3 ML NPPB SCH ×4 (07:53→18:50)
[2018-07-05] MEDS: INSULIN LISPRO 100 UNITS/ML, PEN SQ-INSULIN SCH ×4 (08:20→21:55)
[2018-07-05] MEDS: FERROUS SULFATE 325 MG TABLET PO SCH (08:21)
[2018-07-05] MEDS: FUROSEMIDE 40 MG TABLET PO SCH (08:21)
[2018-07-05 08:22] VITALS: BP 152/83
[2018-07-05] MEDS: METOPROLOL SUCCINATE 100 MG TAB.ER.24H PO SCH (08:22)
[2018-07-05] MEDS: SODIUM CHLORIDE FLUSH 10ML SYR IVF SCH ×2 (08:25→20:07)
[2018-07-05 12:47] VITALS: BP 121/67
[2018-07-05 19:28] VITALS: BP 144/71
[2018-07-05] MEDS: ATORVASTATIN 20 MG TABLET PO SCH (20:07)
[2018-07-05] MEDS: INSULIN GLARGINE 100 UNITS/ML, PEN SQ-INSULIN SCH (21:55)
[2018-07-06 01:13] VITALS: BP 138/67
[2018-07-06] MEDS: ACETAMINOPHEN 325 MG TABLET PO PRN ×3 (01:18→21:31)
[2018-07-06] MEDS: HEPARIN 5,000 UNITS/ML, 1ML SQ SCH ×3 (04:26→21:32)
[2018-07-06] MEDS: methylPREDNISolone SOD SUCC 125 MG/2 ML IVPush SCH ×4 (04:26→22:17)
[2018-07-06] MEDS: ASPIRIN 325 MG TABLET EC PO SCH (05:56)
[2018-07-06] MEDS: OMEPRAZOLE 20 MG CAPSULE.DR PO SCH ×2 (05:56→16:44)
[2018-07-06] MEDS: NYSTATIN 500,000 UNITS/5 ML UDC PO SCH ×4 (05:56→21:31)
[2018-07-06] MEDS ORDERED: IPRATROPIUM 0.5 MG/2.5 ML INHA ONE (07:17)
[2018-07-06] MEDS: ALBUTEROL/IPRATROPIUM 2.5MG/0.5MG, 3 ML NPPB SCH ×4 (07:20→18:49)
[2018-07-06] MEDS: BUDESONIDE 0.5 MG/2 ML INHA INH SCH ×2 (07:20→18:52)
[2018-07-06 07:32] VITALS: BP 132/69
[2018-07-06] MEDS: FERROUS SULFATE 325 MG TABLET PO SCH (08:22)
[2018-07-06] MEDS: METOPROLOL SUCCINATE 100 MG TAB.ER.24H PO SCH (08:22)
[2018-07-06] MEDS: FUROSEMIDE 40 MG TABLET PO SCH (08:22)
[2018-07-06] MEDS: SODIUM CHLORIDE FLUSH 10ML SYR IVF SCH ×2 (08:23→21:31)
[2018-07-06] MEDS: INSULIN LISPRO 100 UNITS/ML, PEN SQ-INSULIN SCH ×4 (08:23→21:32)
[2018-07-06 14:34] VITALS: BP 137/74
[2018-07-06 20:12] VITALS: BP 105/57
[2018-07-06] MEDS: ATORVASTATIN 20 MG TABLET PO SCH (21:31)
[2018-07-06] MEDS: INSULIN GLARGINE 100 UNITS/ML, PEN SQ-INSULIN SCH (21:33)
[2018-07-07 00:45] VITALS: BP 108/50
[2018-07-07] MEDS: methylPREDNISolone SOD SUCC 125 MG/2 ML IVPush SCH ×4 (04:18→21:47)
[2018-07-07] MEDS: NYSTATIN 500,000 UNITS/5 ML UDC PO SCH ×4 (06:17→21:18)
[2018-07-07] MEDS: ACETAMINOPHEN 325 MG TABLET PO PRN ×2 (06:17→08:51)
[2018-07-07] MEDS: OMEPRAZOLE 20 MG CAPSULE.DR PO SCH ×2 (06:17→20:33)
[2018-07-07] MEDS: HEPARIN 5,000 UNITS/ML, 1ML SQ SCH ×3 (06:18→21:48)
[2018-07-07] MEDS: ASPIRIN 325 MG TABLET EC PO SCH (06:18)
[2018-07-07] MEDS: BUDESONIDE 0.5 MG/2 ML INHA INH SCH ×2 (06:40→20:40)
[2018-07-07] MEDS: ALBUTEROL/IPRATROPIUM 2.5MG/0.5MG, 3 ML NPPB SCH ×4 (06:40→20:40)
[2018-07-07] MEDS: INSULIN LISPRO 100 UNITS/ML, PEN SQ-INSULIN SCH ×4 (07:00→20:35)
[2018-07-07 07:45] VITALS: BP 126/55
[2018-07-07] MEDS: METOPROLOL SUCCINATE 100 MG TAB.ER.24H PO SCH (08:44)
[2018-07-07] MEDS: SODIUM CHLORIDE FLUSH 10ML SYR IVF SCH ×2 (08:44→20:33)
[2018-07-07] MEDS: FUROSEMIDE 40 MG TABLET PO SCH (08:44)
[2018-07-07] MEDS: FERROUS SULFATE 325 MG TABLET PO SCH (08:44)
[2018-07-07 14:14] VITALS: BP 107/66
[2018-07-07 18:43] VITALS: BP 147/70
[2018-07-07] MEDS: ATORVASTATIN 20 MG TABLET PO SCH (20:33)
[2018-07-07] MEDS: INSULIN GLARGINE 100 UNITS/ML, PEN SQ-INSULIN SCH (20:35)
[2018-07-08 00:15] VITALS: BP 129/66
[2018-07-08] MEDS: methylPREDNISolone SOD SUCC 125 MG/2 ML IVPush SCH (04:11)
[2018-07-08] MEDS: NYSTATIN 500,000 UNITS/5 ML UDC PO SCH (05:38)
[2018-07-08] MEDS: OMEPRAZOLE 20 MG CAPSULE.DR PO SCH (05:49)
[2018-07-08] MEDS: HEPARIN 5,000 UNITS/ML, 1ML SQ SCH (05:49)
[2018-07-08] MEDS: ASPIRIN 325 MG TABLET EC PO SCH (05:49)
[2018-07-08] MEDS: ALBUTEROL/IPRATROPIUM 2.5MG/0.5MG, 3 ML NPPB SCH (06:21)
[2018-07-08 07:25] VITALS: BP 118/68
[2018-07-08] MEDS: SODIUM CHLORIDE FLUSH 10ML SYR IVF SCH (07:27)
[2018-07-08] MEDS: FERROUS SULFATE 325 MG TABLET PO SCH (07:27)
[2018-07-08] MEDS: INSULIN LISPRO 100 UNITS/ML, PEN SQ-INSULIN SCH (07:27)
[2018-07-08] MEDS: FUROSEMIDE 40 MG TABLET PO SCH (07:27)
[2018-07-08] MEDS: METOPROLOL SUCCINATE 100 MG TAB.ER.24H PO SCH (07:27)
== END 2018-07-08 08:52 | disposition left against medical advice (07) | DRG 291 ==
LOC: ED 11:28 → EDIP 12:30 → 4EST 15:02
PROVIDERS: ADMIT Family Medicine; ATTEND Family Medicine
DX: I13.0 Hypertensive heart and chronic kidney disease with heart failure and stage 1 through stage 4 chronic kidney disease, or unspecified chronic kidney disease (principal); I50.33 Acute on chronic diastolic (congestive) heart failure; J96.21 Acute and chronic respiratory failure with hypoxia; N17.9 Acute kidney failure, unspecified; J44.1 Chronic obstructive pulmonary disease with (acute) exacerbation; J45.42 Moderate persistent asthma with status asthmaticus; Z53.21 Procedure and treatment not carried out due to patient leaving prior to being seen by health care provider; D50.9 Iron deficiency anemia, unspecified; E11.22 Type 2 diabetes mellitus with diabetic chronic kidney disease; E78.00 Pure hypercholesterolemia, unspecified; I35.2 Nonrheumatic aortic (valve) stenosis with insufficiency; N18.3 Chronic kidney disease, stage 3 (moderate); N39.3 Stress incontinence (female) (male); B97.4 Respiratory syncytial virus as the cause of diseases classified elsewhere; R54 Age-related physical debility; Z87.891 Personal history of nicotine dependence; Z86.73 Personal history of transient ischemic attack (TIA), and cerebral infarction without residual deficits
CPT/HCPCS: 36415; 71045; 71046; 71250; 80048; 80053; 82947; 82962; 83036; 83605; 83735; 83880; 84100; 84145; 84484; 85025; 86609; 86756; 87040; 87400; 90732; 93005; 93306; 94640; 99285; G0378; J1644; J1940; J7613; J7620; J7626; J1815; J2930; J7512